=== PATIENT | male | born 1980 | race Two or more races ===

== ENCOUNTER 2019-03-31 14:54 | Emergency (ER) | payer OTHER ==
[~2019-03-31] VITALS: Ht 177.8 cm; Wt 115.3 kg
[2019-03-31 15:17] VITALS: BP 125/70
[2019-03-31] MEDS ORDERED: FLUORESCEIN OPHTHALMIC 1 MG STRIP EACHEYE ONE (15:30)
[2019-03-31] MEDS ORDERED: PROPARACAINE OPHTH 0.5%, 15ML EACHEYE ONE (15:30)
[2019-03-31] MEDS ORDERED: PROPARACAINE OPHTH 0.5%, 15ML ONE (15:33)
[2019-03-31] MEDS ORDERED: FLUORESCEIN OPHTHALMIC 1 MG STRIP ONE (15:33)
--- NOTE | 2019-03-31 15:41 | NUR ---
PT STATES "EYE JUST SWELLED UP TODAY". DENIES TRAUMA OR ANY VISION LOSS MEDICATIONS AT BEDSIDE.
--- NOTE | 2019-03-31 17:10 | NUR ---
IV ESTABLISHED FOR CT. LABS DRAWN. GIVEN TISSUES. NO NEEDS AT THIS TIME
[2019-03-31 17:26] LABS: MD NO
[2019-03-31 17:30] LABS: ANION GAP 5 mmol/L (5-15); CALCIUM 8.9 mg/dL (8.5-10.1); CHLORIDE 107 mmol/L (98-107)
[2019-03-31 17:54] LABS: BASOPHILS # (AUTO) 0.03 x10^3/uL (0-0.1); BASOPHILS % (AUTO) 0 % (0-1); EOSINOPHILS # (AUTO) 0.18 x10^3/uL (0-0.4); EOSINOPHILS % (AUTO) 2 % (1-7); LYMPHOCYTES # (AUTO) 2.61 x10^3/uL (1-3.4); LYMPHOCYTES % (AUTO) 33 % (22-44); MEAN CORPUSCULAR HEMOGLOBIN 29.9 pg (27.5-34.5); MEAN CORPUSCULAR HGB CONC 32.7 g/dL (33.2-36.2); MEAN CORPUSCULAR VOLUME 91.3 fL (81-97); MEAN PLATELET VOLUME 7.9 fL (7.4-10.4); MONOCYTES # (AUTO) 0.71 x10^3/uL (0.2-0.8); MONOCYTES % (AUTO) 9 % (2-9); NEUTROPHILS # (AUTO) 4.41 x10^3/uL (1.8-6.8); NEUTROPHILS % (AUTO) 56 % (42-75); PLATELET COUNT 272 x10^3/uL (130-400); RED CELL DISTRIBUTION WIDTH 13.8 % (9.4-14.8)
[2019-03-31] MEDS ORDERED: OMNIPAQUE 350 MG/ML, 75ML BOTTLE ONE (17:57)
--- NOTE | 2019-03-31 18:28 | NUR ---
PT GOING THROUGH [facility]. WANTING SOME WATER. PT REMINDED TO NOT GO THROUGH [facility]
--- NOTE | 2019-03-31 18:50 | NUR ---
DISCUSSED JIM Alonso MD. WILL BE CODY CROSSX
--- NOTE | 2019-03-31 19:22 | NUR ---
ABX INFUSING. WILL DC AFTER. PT SATES HE NEEDS TO LEAVE [facility] FOR A DANCE REHEARSAL
[2019-03-31] MEDS ORDERED: AMPICILLIN/SULBACTAM 3 GM in SODIUM CHLORIDE 0.9% 100 ML IV ONE (19:30)
--- NOTE | 2019-03-31 19:48 | NUR ---
Patient/Caregiver given discharge instructions and they have confirmed that they understand the instructions. Patient ambulatory with steady gait.
== END 2019-03-31 19:49 | disposition home or self-care (01) ==
LOC: ED 16:14
DX: H10.232 Serous conjunctivitis, except viral, left eye (principal); H05.012 Cellulitis of left orbit
CPT/HCPCS: 36415; 70487; 80048; 85025; 87491; 87591; 96365; 99284; J0295; Q9967